=== PATIENT | female | born 1980 | race Caucasian/White ===

== ENCOUNTER 2017-03-16 18:43 | Inpatient (IN) | payer OTHER ==
--- NOTE | ~2017-03-16 | HP ---
Unit #: [id number] #: [id number] Patient: NICOLASA REES [id number] [place] [address] [id number] MR#: [id number] NAME: NICOLASA REES ROOM: P256 Age: 36 Sex: F Admission Date: 03/16/2017 : 1980 Attending Physician: Raymon Hancock M.D. Admitting Physician: Raymon Hancock M.D. Primary Care Physician: Generic Doctor Not In System HISTORY AND PHYSICAL HISTORY OF PRESENT ILLNESS The patient is a 36-year-old female admitted to [address] [place] [address] on 03/16/2017 for self-harm and depression. PAST MEDICAL HISTORY 1. Migraines 2. IBS. PAST SURGICAL HISTORY Tonsillectomy, oral surgery. SOCIAL HISTORY She is unemployed. She lives with her parents. She smokes one to two packs of cigarettes per week and has a prescription for Xanax but she has been using more than one is prescribed. FAMILY MEDICAL HISTORY Noncontributory. ALLERGIES Penicillin and Sulfa. CURRENT MEDICATIONS Zoloft and Wellbutrin. REVIEW OF SYSTEMS CONSTITUTIONAL: No fever or chills. HEENT: Denies any sore throat, ear pain or runny nose. CARDIOVASCULAR: Denies chest pain, irregular heart rhythm or palpitations. CHEST: Denies shortness of breath or cough. No hemoptysis. GASTROINTESTINAL: Denies nausea, vomiting, diarrhea or chronic constipation. ENDOCRINE: Denies history of increased thirst or urination. No recent significant weight loss or gain. GENITOURINARY: Denies dysuria, frequency, or hematuria. SKIN: Denies any rashes. HEMATOLOGIC: Denies history of increased bleeding or bruising. MUSCULOSKELETAL: Denies any hot, swollen joints. No generalized muscle pain. NEUROLOGIC: Denies problems with vision or speech. No frequent, severe headaches. No numbness, tingling or weakness in any extremities. Denies loss of bladder or bowel control. Unit #: [id number] #: [id number] Patient: NICOLASA REES PHYSICAL EXAM GENERAL: She is awake, alert and oriented in no acute distress. VITAL SIGNS: Temperature 98.6, heart rate 109, respiration 16, blood pressure 110/72. HEIGHT: 5'3". WEIGHT: 110 pounds. SKIN: Warm and dry without rash or lesion. HEENT: Normocephalic. TMs not viewed. Oral and nasal passages clear. Conjunctivae clear. PERRLA. EOMs intact. NECK: Supple without lymphadenopathy or thyromegaly. HEART: Regular rate and rhythm without murmur. LUNGS: Clear. ABDOMEN: Soft, nontender. : Not done. EXTREMITIES: No evidence of cyanosis, clubbing or edema. Moves all without focal deficit. NEUROLOGICAL: Grossly within normal limits. Cranial Nerves: II: Visual pizarro are intact. III, IV AND : Extraocular movements are intact. Pupils are equal, round and reactive to light. V: Facial sensation is grossly normal. VII: Facial movements and expression are normal. VIII: Auditory acuity grossly intact. IX, X: Uvula is midline. Phonation is normal. XI: Patient shrugs shoulders and turns head normally. XII: Tongue protrudes in the midline. Sensory and Motor Function: Sensory and motor sensation is grossly normal. Motor: moves all extremities well. IMPRESSION 1. Psychiatric admission. 2. Migraines. 3. IBS. RECOMMENDATIONS Psychiatric per psychiatrist. MEDICAL: No contraindication to participate in facility activities. MEDICAL PROGNOSIS Good. MEDICAL CONDITION Stable. Dictated by... Monserrat Walls/jeni TD: 03/17/2017 21:23 JOB #: [id number] Unit #: [id number] #: [id number] Patient: NICOLASA REES HISTORY AND PHYSICAL Page 1 of 1 X OLGA LIDIA HOYT APRN X HISTORY AND PHYSICAL
--- NOTE | ~2017-03-16 | DS ---
Unit #: [id number] #: [id number] Patient: NICOLASA REES [id number] [facility] [address] [place] [address] [id number] I MR#: [id number] NAME: NICOLASA REES ROOM: P256 Age: 36 Sex: F Admission Date: 03/16/2017 : 1980 Discharge Date: 03/18/2017 Attending Physician: Raymon Hancock M.D. Primary Care Physician: Generic Doctor Not In System DISCHARGE SUMMARY REASON FOR ADMISSION Depression, suicidal ideation, self-injurious behavior. DIAGNOSTIC STUDIES LABORATORY DATA: Unremarkable except urine drugs screen positive for benzodiazepine. HOSPITAL COURSE The patient was admitted to inpatient unit on March 16 and discharged on 03/18/2017. The patient was treated with group therapy, individual therapy, expressive therapy, medication management. The patient responded well with the above modalities of treatment. Subsequently, the patient was discharged with a plan to follow up in [facility] level of care. DISCHARGE MEDICATIONS 1. Zoloft 200 mg at bedtime for depression. 2. Wellbutrin XL 150 mg in the morning for depression. 3. The patient takes Desyrel 75 mg at bedtime for sleep. 4. Xanax 1 mg at bedtime for anxiety. 5. Protonix 40 mg once daily for GERD. 6. Flexeril 10 mg at bedtime for muscle spasm. 7. Flonase nasal spray 1 spray daily for nasal congestion. DISCHARGE DIAGNOSES PSYCHIATRIC: Major depressive disorder, recurrent, severe, F33.3. SECONDARY: Deferred. MEDICAL: Please refer to H and P. STRESSORS: Psychosocial stressor. FOLLOWUP CARE The patient to follow up in outpatient clinic as per social services manager. CONDITION ON DISCHARGE The patient pleasant, cooperative. Denied any psychotic symptom or any suicidal ideation. PROGNOSIS Guarded. DIET AND ACTIVITY As tolerated. Unit #: [id number] #: [id number] Patient: NICOLASA REES Dictated by... Raymon Hancock M.D. SZC/bzg TD: 03/20/2017 08:17 JOB #: [id number] DISCHARGE SUMMARY Page 1 of 1 X Raymon Hancock MD DISCHARGE SUMMARY
--- NOTE | ~2017-03-16 | PA ---
Unit #: [id number] #: [id number] Patient: VINICIUS ZELAYA [id number] [facility] JULIANA SANDERSON [address] [place] [address] [id number] I MR#: [id number] NAME: VINICIUS ZELAYA ROOM: P256 Age: 36 Sex: F Admission Date: 03/16/2017 : 1980 Date of Assessment: Attending Physician: Raymon Hancock M.D. Admitting Physician: Raymon Hancock M.D. Primary Care Physician: Generic Doctor Not In System PSYCHIATRIC ASSESSMENT INFORMANT The patient reliability, fair; chart reliability, good. CHIEF COMPLAINT Depression. HISTORY OF PRESENT ILLNESS Ms. Vinicius Zelaya is a 36-year-old female, seen on 2-Alivia with the above-mentioned complaint. The patient has a history of previous treatment at [facility] juliana Smith in 2016, 2009, 2011 for depression and suicidal ideation. She lives with parents, currently unemployed. The patient presented stating that her mother encouraged her to come here due to increase in depression in the last 2 days following the break-up with her boyfriend. The patient has been staying in bed, taking a large amount of p.r.n. Xanax and cutting with a razor. The patient reports suicidal ideation with thoughts yesterday to run her car off the road. The patient reports that she has suicidal ideation, today unable to contract for safety, engaging in self-harming behavior. Denied any psychotic symptom or any homicidal ideation. Needing inpatient admission at this time for psychiatric stabilization. PAST PSYCHIATRIC HISTORY Remarkable for history of previous admission at [facility] on 12/03/2016. FAMILY HISTORY AND SOCIAL HISTORY The patient lives with her parents, never , no children. No history of abuse. Currently not working. MEDICAL HISTORY Remarkable for chronic pain, GERD. Musculoskeletal; muscle strength and tone, no atrophy or abnormal movement. Gait normal. MEDICATION HISTORY The patient is currently on Wellbutrin XL 150 mg in the morning, Zoloft 200 mg at bedtime, and trazodone 75 mg at bedtime. ALLERGIES No known drug allergies. SUBSTANCE ABUSE HISTORY Denied any use of drugs or alcohol. Unit #: [id number] #: [id number] Patient: VINICIUS ZELAYA REVIEW OF SYSTEMS HEENT: Eyes, clear. Ears, nose, mouth, and throat; clear. CARDIOVASCULAR: Unremarkable. RESPIRATORY: Unremarkable. GI: Unremarkable. : Unremarkable. SKIN: Unremarkable. LYMPH NODE: Unremarkable. NEUROLOGIC: Unremarkable. ENDOCRINE: Unremarkable. HEMATOLOGIC: Unremarkable. ALLERGIC/IMMUNOLOGIC: Unremarkable. MUSCULOSKELETAL: Muscle strength and tone, no atrophy or abnormal movement. Gait normal. MENTAL STATUS EXAMINATION CONSTITUTIONAL: Measurement of vital signs; temperature 98.3, pulse 79, respirations 16, and blood pressure 110/71, height 5 feet 3 inches, weight 110 pounds. GENERAL APPEARANCE: The patient dressed casually. No facial deformity noted. MUSCULOSKELETAL: Please see above. PSYCHIATRIC EXAMINATION Description of speech; regular rate. Description of thought process, goal directed. Description of association, intact. Description of abnormal psychotic thinking; the patient denied any hallucination or delusions, but suicidal ideation, self-harming behavior. Description of the patient's judgment, concerning everyday activity, poor. Social situation, poor. Concerning psychiatric condition, poor. Complete mental status examination; oriented in time, place, and person. Recent and remote memory, fair. Attention span and concentration, fair. Language, able to name object and repeat phrases. Fund of knowledge, aware of current event and passive. Vocabulary, intact. Mood and affect, sad and dysphoric. Insight and judgment, fair to poor. ASSETS AND LIABILITIES Assets; the patient is articulate and able to take care of her ADL. Liability, history of depression. ADMITTING DIAGNOSES Psychiatric: Major depressive disorder, recurrent, severe, F33.3. Secondary diagnosis: Deferred. Medical diagnosis: Please refer to H and P. Stressors: Psychosocial stressors. PSYCHIATRIC PLAN AND TREATMENT GOAL AND DISCHARGE PLAN 1. Advised to admit the patient on the inpatient unit. Provide safe, supportive, and structured environment. 2. Ordered labs; CBC, CMP, UA, and UDS. 3. Advised to resume home medication. If needed, consider further adjustment of medication, SP1 precaution. The patient to attend all the programing group therapy, individual therapy. If needed, consider family session. Unit #: [id number] #: [id number] Patient: VINICIUS ZELAYA 4. Treatment goal; to attain euthymic mood, gain insight into her problem, and learn coping skills. 5. Discharge plan; plan to stabilize the patient and consider followup in outpatient program. ESTIMATED LENGTH OF STAY 2 weeks. Dictated by... Marshall Lo/robin TD: 03/17/2017 15:23 JOB #: [id number] PSYCHIATRIC ASSESSMENT Page 1 of 1 X Raymon Hancock MD PSYCHIATRIC ASSESSMENT
--- NOTE | ~2017-03-16 | PN ---
Unit #: [id number] #: [id number] Patient: NICOLASA REES [id number] [facility] [address] [place] [address] [id number] I MR#: [id number] NAME: NICOLASA REES ROOM: P256 Age: 36 Sex: F Admission Date: 03/16/2017 : 1980 Attending Physician: Raymon Hancock M.D. Admitting Physician: Raymon Hancock M.D. Primary Care Physician: Generic Doctor Not In System [facility] PROGRESS NOTES DATE March 17, 2017 DISCUSSION Ms. Colvni is a 36-year-old female, seen on 03/17/2017. The patient interviewed, chart reviewed, and obtained information from the nursing staff. The patient was compliant and cooperative. Mood sad and dysphoric, flat affect, and guarded, and anxiety. Vital signs, 98.3, 79, 16, and 110/71. The patient continues to be isolative, flat affect, sad and dysphoric, withdrawn, isolative but a few Tylenol for pain. REVIEW OF SYSTEMS Complete review of systems unremarkable. MENTAL STATUS EXAMINATION General appearance: Patient dressed casually. Attention span and concentration, fair. Oriented to time, place, and person. Mood and affect, sad and depressed. Speech, monotone. Thought process, concrete. The patient reported passive SI, denied homicidal ideation, or psychotic symptoms. Recent and remote memory, poor. Insight and judgment, poor. DIAGNOSIS Major depressive disorder, recurrent, severe. ASSESSMENT/PLAN Advised to continue with the current medication and therapeutic protocol, and if needed consider further adjustment of medication. Dictated by... Marshall Lo/taylor TD: 03/18/2017 09:41 JOB #: [id number] Unit #: [id number] #: [id number] Patient: NICOLASA REES [facility] PROGRESS NOTES Page 1 of 1 X Raymon Hancock MD PROGRESS NOTE
[2017-03-17 14:19] LABS: URINE APPEARANCE CLOUDY; URINE BILIRUBIN NEG (NEG); URINE BLOOD 1+ (NEG); URINE COLOR YELLOW; URINE GLUCOSE NEG (NEG); URINE KETONE 3+ (NEG); URINE LEUKOCYTE ESTERASE TRACE (NEG); URINE NITRATE NEG (NEG); URINE PH 5.5 (5-8); URINE PROTEIN NEG (NEG)
[2017-03-17 14:21] LABS: URINE BACTERIA AUWI 1+ (NEGATIVE); URINE SQUAMOUS EPITHELIAL CELL MOD /[HPF]
[2017-03-17 14:30] LABS: AMPHETAMINE NEG (NEG); BARBITURATES NEG (NEG); BENZODIAZEPINES POS (NEG); COCAINE NEG (NEG); MARIJUANA NEG (NEG); OPIATES NEG (NEG); TRICYCLIC ANTIDEPRESSANTS POS (NEG); U METHADONE NEG (NEG)
[2017-03-17 14:34] LABS: U HYALINE CASTS AUWI 0-2 /[LPF]; URBCS1 AUWI 0-2 /[HPF] (0-2); URINE MUCUS PRESENT; UWBCS1 AUWI 0-2 (0-5)
[2017-03-18 09:50] LABS: BASOPHIL% 0.9 % (0-2.5); EOSINOPHIL# 0.2 X10e3 (0-0.7); HEMATOCRIT 38.5 % (35.0-45.0); HEMOGLOBIN 12.6 gm/dL (12.0-16.0); LYMPHOCYTE# 2.1 X10e3 (1.0-3.5); LYMPHOCYTE% 40.3 % (17.0-45.0); MEAN CELL VOLUME 86.5 FL (83-96); MEAN CORPUSCULAR HEMOGLOBIN 28.3 PG (28-34); MEAN CORPUSCULAR HGB CONC 32.7 g/dL (30-36); MEAN PLATELET VOLUME 8.2 FL (6.5-11.5); MONOCYTE# 0.4 X10e3 (0-1.0); MONOCYTE% 8.4 % (3.0-12.0); NEUTROPHIL# 2.5 X10e3 (1.5-7.1); NEUTROPHIL% 47.4 % (40-75); PLATELET COUNT 212 X10e3 (140-420); RED BLOOD COUNT 4.45 X10e (3.90-5.30); RED CELL DISTRIBUTION WIDTH 13.2 % (11.0-15.5); WHITE BLOOD COUNT 5.2 X10e3 (4.0-10.5)
[2017-03-18 09:55] LABS: DIFF IND NO
[2017-03-18 10:48] LABS: BILIRUBIN,TOTAL 0.9 mg/dL (0.2-2.0); CALCIUM SERUM 8.9 mg/dL (8.4-10.2); CREATININE SERUM 0.7 mg/dL (0.6-1.4); GLOM FILT RATE Estimated 111.5 mL/min (>60); POTASSIUM 3.9 mmol/L (3.5-5.1); PROTEIN TOTAL SERUM 6.6 g/dL (6.0-8.3)
== END 2017-03-18 11:15 | disposition home or self-care (01) | DRG 885 ==
LOC: P2L 18:43
PROVIDERS: Psychiatry & Neurology Psychiatry
DX: F33.2 Major depressive disorder, recurrent severe without psychotic features (principal); G43.909 Migraine, unspecified, not intractable, without status migrainosus; K21.9 Gastro-esophageal reflux disease without esophagitis; Z88.0 Allergy status to penicillin; Z88.2 Allergy status to sulfonamides
CPT/HCPCS: 80053; 80307; 81003; 82947; 84703; 85025